=== PATIENT | female | born 1950 | race Caucasian/White ===

== ENCOUNTER 2022-07-01 21:25 | Emergency (ER) | payer MEDICARE ==
[~2022-07-01] VITALS: Ht 152.4 cm; Wt 61.2 kg
[2022-07-02 00:01] LABS: BASO % 0.4 % (0.0-1.0); EOS # 0.1 10*3/uL (0.0-0.4); EOS % 0.7 % (1.0-4.0); HEMATOCRIT 42.4 % (37.0-47.0); LYMPH # 1.2 10*3/uL (1.3-4.4); MEAN CELL VOLUME 91.4 fl (81.0-99.0); MEAN CORPUSCULAR HGB 30.2 pg (27.0-31.0); MEAN PLATELET VOLUME 10.5 fl (9.6-12.3); MONO # 0.9 10*3/uL (0.1-1.0); MONO % 8.7 % (3.0-9.0); NEUT # 8.4 10*3/uL (2.3-7.9); PLATELET COUNT AUTOMATED 216 10*3/uL (130-400); RED BLOOD COUNT 4.64 10*6/uL (4.10-5.10); RED CELL DISTRI WIDTH 12.2 % (0-14.5); WHITE BLOOD COUNT 10.6 10*3/uL (4.8-10.8)
[2022-07-02 00:24] LABS: ALKALINE PHOSPHATASE 113 U/L (45-117); BUN 10 mg/dl (7-24); CHLORIDE 105 mmol/L (98-107); CREATININE 0.87 mg/dL (0.55-1.02); LIPASE 173 U/L (73-393); POTASSIUM 3.5 mmol/L (3.5-5.1); SGOT/AST 16 IU/L (3-35); SGPT/ALT 21 U/L (12-78); SODIUM 140 mmol/L (136-145); TOTAL PROTEIN 7.3 gm/dL (6.4-8.2)
[2022-07-02] MEDS ORDERED: Molnupiravir PO (01:44)
[2022-07-02] MEDS ORDERED: ONDANSETRON4 MG SL (01:46)
== END 2022-07-02 02:02 | disposition home or self-care (01) ==
LOC: ED 21:25
PROVIDERS: Emergency Medicine
DX: U07.1 COVID-19 (principal); B34.9 Viral infection, unspecified; R11.2 Nausea with vomiting, unspecified